=== PATIENT | male | born 1975 | race American Indian/Alaskan Native ===

== ENCOUNTER 2018-01-20 16:59 | Emergency (ER) | payer MEDICAID ==
[2018-01-20 17:07] VITALS: RESP 18; O2SAT 99; BMI 36.6
[2018-01-20 18:06] LABS: BASO % 0.7 % (0.0-2.0); EOS # 0.2 K/uL (0.0-0.7); EOS % 2.7 % (0.0-4.0); HEMOGLOBIN 13.8 g/dL (12.0-18.0); LYMPH # 1.7 K/uL (1.0-4.3); MEAN CORPUSCULAR HEMOGLOBIN 27.9 pg (27.0-31.0); MEAN CORPUSCULAR HGB CONC 34.5 g/dL (33.0-37.0); MEAN PLATELET VOLUME 7.6 fL (7.2-11.7); MONO # 0.5 K/uL (0.0-0.8); MONO % 9.1 % (0.0-10.0); NEUT # 3.2 K/uL (1.8-7.0); NEUT % 56.5 % (50.0-75.0); RBC 4.95 Mil/uL (4.40-5.90); RED CELL DISTRIBUTION WIDTH 14.6 % (11.5-14.5); WHITE BLOOD COUNT 5.6 K/uL (4.8-10.8)
--- NOTE | 2018-01-20 18:08 | RAD ---
PROCEDURE: CHEST RADIOGRAPH, 1 VIEW HISTORY: CP COMPARISON: None available. FINDINGS: LUNGS: Poor inspiration with low lung volumes, crowded bronchovascular markings and mild bibasilar atelectasis. PLEURA: No pneumothorax or pleural fluid seen. CARDIOVASCULAR: Sternotomy wires present. . Heart is enlarged OSSEOUS STRUCTURES: No significant abnormalities. VISUALIZED UPPER ABDOMEN: Normal. OTHER FINDINGS: None. IMPRESSION: Poor inspiration with low lung volumes, crowded bronchovascular markings and mild bibasilar atelectasis. Cardiomegaly. The
[2018-01-20 18:14] LABS: PROTHROMBIN TIME 10.7 SECONDS (9.7-12.2)
[2018-01-20 18:28] LABS: ALB/GLOB RATIO 1.3 (1.0-2.1); ALBUMIN 4.2 g/dL (3.5-5.0); CALCIUM 8.9 mg/dl (8.6-10.4); GFR AFRICAN-AMERICAN > 60; GFR NON-AFRICAN AMERICAN > 60
--- NOTE | 2018-01-20 18:29 | C.PDOC ---
History Of Present Illness 43 y/o male, w/PMhx of HTN and diabetes, presents to the ER complaining of chest pain which has been present for the past 3 weeks. Patient states that he has a history of an, " unknown surgery for some repair in his aorta" at [facility] in September 2016. He notes that he stopped taking Lisinopril because he was concerned about the side effects. He denies having fever, chills , and SOB. Patient reports that his PMD is and his evaporator helper is Dr. Alessio Whitehead. Time Seen by Provider: 01/20/18 17:34 Chief Complaint (Nursing): Chest Pain History Per: Patient History/Exam Limitations: no limitations Onset/Duration Of Symptoms: Days Current Symptoms Are (Timing): Still Present Severity: Moderate Past Medical History Reviewed: Historical Data, Nursing Documentation, Vital Signs Vital Signs: Last Vital Signs Temp 97.9 F 01/20/18 17:07 Pulse 70 01/20/18 17:07 Resp 18 01/20/18 17:07 BP 166/99 H 01/20/18 17:07 Pulse Ox 99 01/20/18 18:55 - Medical History PMH: HTN Other Surgeries: Hx of surgeries Family History: States: No Known Family Hx - Social History Hx Alcohol Use: No Hx Substance Use: No - Immunization History Hx Tetanus Toxoid Vaccination: No Hx Influenza Vaccination: No Hx Pneumococcal Vaccination: No Review Of Systems Except As Marked, All Systems Reviewed And Found Negative. Constitutional: Negative for: Fever, Chills Cardiovascular: Positive for: Chest Pain Respiratory: Negative for: Cough, Shortness of Breath Physical Exam - Physical Exam Appears: Non-toxic, No Acute Distress Skin: Normal Color, Warm Head: Atraumatic, Normacephalic Eye(s): bilateral: Normal Inspection Nose: Normal Oral Mucosa: Moist Neck: Supple Chest: Symmetrical Cardiovascular: Rhythm Regular Respiratory: Normal Breath Sounds, No Rales, No Rhonchi, No Wheezing Gastrointestinal/Abdominal: Normal Exam, Soft, No Tenderness Extremity: Normal ROM Neurological/Psych: Oriented x3, Normal Speech ED Course And Treatment - Laboratory Results Result Diagrams: 01/20/18 18:00 01/20/18 18:00 ECG: Interpreted By Me, Viewed By Me ECG Rhythm: Sinus Rhythm Interpretation Of ECG: Sinus rhythm with PVC's in a pattern of bigeminy Rate From EC O2 Sat by Pulse Oximetry: 99 (RA) Pulse Ox Interpretation: Normal - Other Rad CXR X-Ray: Viewed By Me, Read By Radiologist Interpretation: PROCEDURE: CHEST RADIOGRAPH, 1 VIEW. HISTORY: CP. COMPARISON : None available. FINDINGS: LUNGS: Poor inspiration with low lung volumes, crowded bronchovascular markings and mild bibasilar atelectasis. PLEURA: No pneumothorax or pleural fluid seen. CARDIOVASCULAR: Sternotomy wires present. . Heart is enlarged. OSSEOUS STRUCTURES: No significant abnormalities. VISUALIZED UPPER ABDOMEN: Normal. OTHER FINDINGS: None. IMPRESSION: Poor inspiration with low lung volumes, crowded bronchovascular markings and mild bibasilar atelectasis. Cardiomegaly. Progress Note: Labs, UA, EKG, and CXR ordered and reviewed. Plan is to keep patient in tele for observation. However patient sts he can't stay in the hospital today because tomorrow is his mother's bday. He sts he will come back on Monday. Risks of leaving hospital AMA were explained to the patient in detals. Patient verbalized understanding and signed AMA form. Disposition - Disposition Disposition: AGAINST MEDICAL ADVICE Disposition Time: 18:54 Condition: FAIR Additional Instructions: Follow up with your Sleeve Turner and PMD WILBERTO. Return to ED immediately if feel worse. Forms: [employer] (Swedish) - Clinical Impression Clinical Impression: Chest pain - PA / ELECTRICAL EQUIPMENT TESTER / Resident Statement MD/DO has reviewed & agrees with the documentation as recorded. - Scribe Statement The provider has reviewed the documentation as recorded by the Luisito oLzoya Provider Attestation All medical record entries made by the Luisito were at my direction and personally dictated by me. I have reviewed the chart and agree that the record accurately reflects my personal performance of the history, physical exam, medical decision making, and the department course for this patient. I have also personally directed, reviewed, and agree with the discharge instructions and disposition.
[2018-01-20 18:31] LABS: ALT/SGPT 57 U/L (21-72); AST/SGOT 44 U/L (17-59); BLOOD UREA NITROGEN 13 mg/dL (9-20)
[2018-01-20 18:39] LABS: CK-MB 0.72 ng/mL (0.0-3.38)
[2018-01-20 19:00] VITALS: BP 145/76; PULSE 78; TEMP 98
== END 2018-01-20 18:59 | disposition left against medical advice (07) ==
LOC: C.ER 16:59
DX: R07.9 Chest pain, unspecified (principal); I10 Essential (primary) hypertension

== ENCOUNTER 2018-01-21 17:00 | Emergency (ER) | payer MEDICAID ==
[2018-01-21 17:20] VITALS: BMI 35.6
[2018-01-21 17:25] VITALS: TEMP 97.8; O2SAT 97
--- NOTE | 2018-01-21 18:47 | C.PDOC ---
History Of Present Illness 43yo male, presents to the ED with complaints of vague chest pain, similar to his presentation yesterday. Patient has good exercise tolerance and is able to do 10 minutes on a treadmill and bike with no difficulties. Patient states he has gained a lot of weight this past year after his surgical procedure and has resultant anxiety and depression. He was recommended to stay overnight for observation but elected to leave AMA as he had a prior commitment to get to. He also has a secondary complaint of right great toe pain but denies any injury or trauma to the area. Time Seen by Provider: 01/21/18 17:39 Chief Complaint (Nursing): Chest Pain History Per: Patient History/Exam Limitations: no limitations Onset/Duration Of Symptoms: Days Current Symptoms Are (Timing): Still Present Past Medical History Reviewed: Historical Data, Nursing Documentation, Vital Signs Vital Signs: Last Vital Signs Temp 97.8 F 01/21/18 17:22 Pulse 79 01/21/18 19:00 Resp 20 01/21/18 19:00 BP 131/83 01/21/18 19:00 Pulse Ox 97 01/21/18 19:00 - Medical History PMH: HTN Family History: States: No Known Family Hx - Social History Hx Alcohol Use: No Hx Substance Use: No - Immunization History Hx Tetanus Toxoid Vaccination: No Hx Influenza Vaccination: No Hx Pneumococcal Vaccination: No Review Of Systems Except As Marked, All Systems Reviewed And Found Negative. Constitutional: Negative for: Fever, Chills Cardiovascular: Positive for: Chest Pain Respiratory: Negative for: Shortness of Breath Musculoskeletal: Positive for: Foot Pain (great toe pain) Physical Exam - Physical Exam Appears: Non-toxic, No Acute Distress, Other (obese) Skin: Normal Color, Warm, Dry Head: Atraumatic, Normacephalic Eye(s): bilateral: Normal Inspection, PERRL Neck: Normal ROM, Supple Chest: Symmetrical, No Tenderness Cardiovascular: Rhythm Regular Respiratory: Normal Breath Sounds, No Wheezing Gastrointestinal/Abdominal: Normal Exam Back: Normal Inspection Extremity: Normal ROM (Right great toe FROM, no swelling, tenderness or erythema noted.), No Pedal Edema Neurological/Psych: Oriented x3 ED Course And Treatment ECG: Interpreted By Me ECG Rhythm: Sinus Rhythm, R BBB ECG Interpretation: Normal O2 Sat by Pulse Oximetry: 97 (RA) Pulse Ox Interpretation: Normal - Other Rad R foot X-Ray: Interpreted by Me (neg) Medical Decision Making Medical Decision Makin: d/w Dr. Polanco, Guest Service Supervisor covering for pt's Guest Service Supervisor, Dr. Alessio Whitehead, ok w w/u and advises d/c home and f/u with office tomorrow after 9A discussion shared w pt and @ bedside, amenable to d/c. R podagra discomfort, prob NOT gouty, rather due to exercise and obesity, NSAIDS and ice advised. Disposition Doctor Will See Patient In The: Office Counseled Patient/Family Regarding: Studies Performed, Diagnosis - Disposition Referrals: [facility] [Outside] [facility] [Outside] [facility] [Outside] Daren Pichardo DPM [Staff Provider] - Disposition: HOME/ ROUTINE Disposition Time: 18:49 Condition: GOOD Additional Instructions: please call to follow-up with Dr. Whitehead tomorrow after 9AM Foot films normal consider foot sprain ice packs 1/2 hour per hour, nothing hot motrin 400-600 mg every 6 hours as needed follow-up with Podiatry as needed. Call Dr. Pichardo's office to make an appointment Instructions: Costochondritis, Foot Sprain (DC) Forms: [employer] (Mexican) - Clinical Impression Clinical Impression: Chest discomfort - Scribe Statement The provider has reviewed the documentation as recorded by the Scribe (Cara Hinojosa) Provider Attestation: All medical record entries made by the Scribe were at my direction and personally dictated by me. I have reviewed the chart and agree that the record accurately reflects my personal performance of the history, physical exam, medical decision making, and the department course for this patient. I have also personally directed, reviewed, and agree with the discharge instructions and disposition.
[2018-01-21 19:01] VITALS: BP 131/83; PULSE 79; RESP 20
--- NOTE | 2018-01-22 08:36 | RAD ---
PROCEDURE: Right Foot Radiographs. HISTORY: R podagra discomfort, chronic, no h/o gout COMPARISON: None. FINDINGS: BONES: Evaluation limited to two views. No evidence of fracture. Small plantar calcaneal spur noted. JOINTS: Normal. SOFT TISSUES: Normal. OTHER FINDINGS: None. IMPRESSION: Small plantar calcaneal spur. Limited examination. No additional abnormality.
--- NOTE | 2018-01-24 08:34 | CARD ---
APPROVED REPORT EKG Measurement Heart [id number] <Conclusion> Sinus rhythm with 1st degree AV block Left axis deviation Right bundle branch block Voltage criteria for left ventricular hypertrophy Abnormal ECG
== END 2018-01-21 19:01 | disposition home or self-care (01) ==
LOC: C.ER 17:00
DX: R07.89 Other chest pain (principal)